=== PATIENT | male | born 1970 | race Caucasian/White ===

== ENCOUNTER 2021-03-17 10:35 | Emergency (ER) | payer SELFPAY ==
--- OUTSIDE RECORDS SUMMARY | 2021-03-17 10:39 | XMS REPORT | Continuity of Care Document ---
:1970 Author Organization [facility] t Address [address] [place] [address] Care Team Providers Name Role Phone Gloria Sena Attending Clinician Unavailable Physician, Primary or Family Admitting Clinician Unavailabl e Payers Payer Name Policy Type Policy Number Effective Date Expiration Date S ource Problems This patient has no known problems. Allergies, Adverse Reactions, Alerts Allergy Allergy Status Severity Reaction(s) Onset Inactive Treating Comm ents Source Name Type Date Date Clinician No Known DA Active U 2020-0 [facility] 8-07 Clear s 00:00: [address] No Known DA Active U 2020-0 [facility] 1-04 Clear s 00:00: [address] No Known DA Active U 2019-0 [facility] Allergie 5-03 Clear s 00:00: [address] Medications This patient has no known medications. Procedures This patient has no known procedures. Encounters Start End Encounter Admission Attending Care Care Encounter Source Date/Time Date/Time Type Type Clinicians Facility Department ID 2021-02-28 2021-02-28 Emergency EM Nathen SHAI AERS [id number] - [facility] 00:35:00 04:15:00 Gloria [id number] Cl [facility] 2021-01-15 2021-01-14 Inpatient E [facility] 7500 MH 03:51:00 20:50:00 [facility] [place] Results Test Description Test Time Test Comments Results Result Comments Source CBC W/AUTO DIFF 2021-03-04 11:52:00 Test Item Value Reference Range Interpretation Comme nts WHITE BLOOD CELL (test code = WBC) 12.1 K/uL 3.5-11.0 H RED BLOOD CELL (test code = RBC) 4.81 M/uL 4.00-5.60 N HEMOGLOBIN (test code = HGB) 14.3 GM/DL 12.5-16.9 N HEMATOCRIT (test code = HCT) 40.9 % 40.0-54.0 N MEAN CELL VOLUME (test code = MCV) 85.0 fL 81.0-99.0 N MEAN CELL HGB (test code = MCH) 29.7 pg 27.0-31.0 N MEAN CELL HGB CONCETRATION (test code = MCHC) 35.0 GM/DL 33.0-37. 0 N RED CELL DISTRIBUTION WIDTH CV (test code = RDW) 13.4 % 11.5- 14.5 N PLATELET COUNT (test code = PLT) 237 K/mm3 150-400 N MEAN PLATELET VOLUME (test code = MPV) 10.1 FL 8.8-13.1 N LYMPHOCYTE % (test code = LY%) 25.4 % 15.0-40.0 N LYMPHOCYTE # (test code = LY#) 3.1 K/uL 1.0-3.8 N TROPONIN-I [id number] 03:46:00 Test Item Value Reference Range Interpretation Comments TROPONIN-I RAPID 0.00 ng/mL 0.00-0.08 N Performed b y certified (test code = raschel knitting machine operator at [facility]) [facility] Ctr Negative: <= 0.0 8 Positive: >= 0.09An elevated troponin value alone is not sufficient todi agnose a myocardial infa rction. Rather, the pat ient sclinical prese ntation (history, physi khadra exam) and ECGshould b e used in conjunction wit h troponin in thediagnosti c evaluation of s uspected myocardial infa rction. Aserial samplin g protocol is recommended to facilitate the identification of temporal changes in trop onin levels characteristic of CT. Coronavirus 2019 nCoV [id number] 01:07:00 Test Item Value Reference Range Interpretation Comments Coronavirus 2019 Negative Negative Performed b y certified nCoV Bedside (non destructive testing scientist at [facility] code = CtrNegative res ults should [id number]) be treated as presumptive and, ifinconsis tent with clinical signs and symptoms or necessaryfor patient management, nay uld be tested with an alternativemole cular assay. Negative result s do not preclude [id number]-[id number]-[id number] tion and should not be u sed as the sole basis forp atient management deci sions. Negative result s should beconsidered in the context of a patient's recent exposures,histo ry, presence of clinical sig ns and symptoms consis tentwith COVID-19. TROPONIN-I [id number] 00:58:00 Test Item Value Reference Range Interpretation Comments TROPONIN-I RAPID 0.00 ng/mL 0.00-0.08 N Performed b y certified (test code = raschel knitting machine operator at [facility]) Med Ctr Negative: <= 0.0 8 Positive: >= 0.09An elevated troponin value alone is not sufficient todi agnose a myocardial infa rction. Rather, the pat ient sclinical prese ntation (history, physi khadra exam) and ECGshould b e used in conjunction wit h troponin in thediagnosti c evaluation of s uspected myocardial infa rction. Aserial samplin g protocol is recommended to facilitate the identification of temporal changes in trop onin levels characteristic of CT. BASIC METABOLIC [id number] 00:51:00 Test Item Value Reference Range Interpretation Comments SODIUM (test code = NA/ABG) 143 MEQ/L 134-147 N POTASSIUM (test code = K/ABG) 3.7 MEQ/L 3.4-5.0 N CHLORIDE (test code = CL/ABG) 108 MEQ/L 100-108 N CREATININE ABG (test code = 1.0 mg/dL 0.8-1.3 N CREAABG) POC IONIZED CALCIUM (test code = 1.09 MMOL/L 1.12-1.32 L POCCA) POC GLUCOSE (test code = POCGLU) 130 MG/DL - XR CHEST 2 [id number] 00:00:00 [facility] 1970 Sex: M FAX: Cassandra Sena [place]: ID St: PRE Name: RITO DENNY FSED : 1970 Age/S: 50/M [address] [facility] Unit #: [id number] Loc: [place] [address] Phys: Gloria Sena MD Acct: [id number] Dis Date: Status:PRE ER PHONE #: Exam Date: 02/28/2021 0100 FAX #: Reason: shortness of breath EXAMS: CPT CODE: [id number] XR CHEST 2 V [id number] PROCEDURE INFORMATION: Exam: XR Chest Examdate and time: 02/28/2021 12:55 AM Age: 50 years old Clinical indication: Shortness of br eath; Patient HX: HX of copd TECHNIQUE: Imaging protocol: XR of the chest. Views: 2 views. PA and Lateral COMPARISON: 1. CR XR CHEST 1V 07/28/2020 8:08 PM 2. CTA CHEST FOR PE 11/26/2019 1:22:18 AM FINDINGS: Lungs: Increased airspace density in the right lower lobe. Remainder of lungs appear radiographically clear. Pleural spaces: Unremarkable. No pleural effusion. No pneumothorax. Heart/Mediastinum: Contours within normal limits. Bones/joints: No acute osseous process. IMPRESSION: Increased airspace density in the right lower lobe. Uncertain if this is related to a confluence of pulmonary arteries with artifactual density or right lower lobe pneumoniais present. Please evaluate clinically. at 0134 Reported and signed by: Jin Mireles M.D. CC: Gloria Sena MD Technologist: Venecia Gillespie, RT(R)(CT) Trnscrd Date/Time/By: 02/28/2021 (0134) : By: [email or web address] PAGE 1 Signed ReportCoronavirus 2019 nCoV Bedside 2020-07-28 20:52:00 Test Item Value Reference Range Interpretation Comments Coronavirus 2019 Negative Negative Negative re sults should be nCoV Bedside (test treated a s presumptive and, code = ifinconsistent with [id number]) clinical signs and symptoms or necessaryfor patient management, nay uld be tested with an alternativemole cular assay. Negative result s do not preclude CQGD-KzR-1jarka tion and should not be u sed as the sole basis forp atient management deci sions. Negative result s should beconsidered in the context of a patient's recent exposures,histo ry, presence of clinical sig ns and symptoms consis tentwith COVID-19. - XR CHEST 1 [id number] 20:49:00 [facility] : 1970 Sex: M FAX: Prem Miguel MD [phone] [place]: ARIELA St: REG Name: RITO DENNY [facility] : 1970 Age/S: 50/M [address] [place] [address] Unit #: [id number] Loc: [place] [address] Phys: Prem Miguel MD Acct: [id number] Dis Date: Status:REG ER PHONE #: [phone] Exam Date: 07/28/20202009 FAX #: [phone] Reason: SOB EXAMS: CPT CODE: [id number] XR CHEST 1 V 71700 Portable single view AP chest INDICATION: Shortness of breath for one day. Comparison: 09/25/2019 chest x-ray FINDINGS: The cardiomediastinal silhouette is normal in size. Calcified right paratracheal and AP window lymph nodes are seen. Left upper lung calcified granuloma present. Lungs are otherwise clear. No pleural effusion or pneumothorax identified. No acute bony finding. IMPRESSION: No evidence for acute cardiopulmonary disease. SL: SG-H at 2048 Reported and signed by: Tej Chaney M.D. CC: Prem Miguel MD Technologist: Jina Benitez RT(R); RT Kermit(R) Trnnerd Date/Time/By: 07/28/2020 (2048) : By: [email or web address] Orig Print D/T: S: 07/28/2020 (2051) PAGE 1 Signed ReportBASIC METABOLIC [id number] 04:45:00 Test Item Value Reference Range Interpretation Comments SODIUM (test code = NA) 140 mEq/L 134-147 N POTASSIUM (test code = 4.6 mEq/L 3.4-5.0 N K) CHLORIDE (test code = 108 mEq/L 100-108 N CL) CARBON DIOXIDE (test 26 mEq/L 21-33 N code = CO2) ANION GAP (test code = 11 0-20 N GAP) GLUCOSE (test code = 127 mg/dL 70-110 H GLU) BLOOD UREA NITROGEN 17 mg/dL 7-18 (test code = BUN) GLOMERULAR FILTRATION 101.9 90-95 H Units of measure = RATE (test code = GFR) ml/mi n/1.73 m2 CREATININE (test code = 0.8 mg/dL 0.6-1.3 N CREAT) CALCIUM (test code = 8.1 mg/dL 8.0-10.5 N CA) HEPATIC FUNCTION [id number] 04:45:00 Test Item Value Reference Range Interpretation Comments TOTAL PROTEIN (test code = PROT) 6.0 g/dL 6.4-8.2 L ALBUMIN (test code = ALB) 2.90 g/dL 3.4-5.0 L BILIRUBIN TOTAL (test code = 0.2 MG/DL <1.5 N BILT) BILIRUBIN DIRECT (test code = < 0.10 MG/DL 0.0-0.30 N BILD) BILIRUBIN INDIRECT (test code = 0.10 MG/DL BILIND) SGOT/AST (test code = AST) 15 IUnit/L 15-37 N SGPT/ALT (test code = ALT) 46 IUnit/L 15-65 N ALKALINE PHOSPHATASE TOTAL (test 72 IUnit/L 20-125 N code = ALKP) CBC W/AUTO [id number] 04:27:00 Test Item Value Reference Range Interpretation Comments WHITE BLOOD CELL (test code = 12.48 x10 3/uL 4.5-11.0 H WBC) RED BLOOD CELL (test code = 4.69 x10 6/uL 4.00-5.60 N RBC) HEMOGLOBIN (test code = HGB) 13.4 g/dL 12.5-16.9 N HEMATOCRIT (test code = HCT) 41.7 % 37.5-50.7 N MEAN CELL VOLUME (test code = 88.9 fL 81.0-99.0 N MCV) MEAN CELL HGB (test code = 28.6 pg 27.0-33.0 N MCH) MEAN CELL HGB CONCETRATION 32.1 g/dL 33.0-37.0 L (test code = MCHC) RED CELL DISTRIBUTION WIDTH CV 13.9 % 11.5-14.5 N (test code = RDW) RED CELL DISTRIBUTION WIDTH SD 45.0 fL 37.0-54.0 N (test code = RDW-SD) PLATELET COUNT (test code = 229 x10 3/uL 150-400 N PLT) MEAN PLATELET VOLUME (test 10.3 fL 7.0-9.0 H code = MPV) NEUTROPHIL % (test code = NT%) 87.2 % 56.0-77.0 H IMMATURE GRANULOCYTE % (test 0.6 % 0.0-2.0 N code = IG%) LYMPHOCYTE % (test code = LY%) 8.3 % 14.0-32.0 L MONOCYTE % (test code = MO%) 3.8 % 4.8-9.0 L EOSINOPHIL % (test code = EO%) 0.0 % 0.3-3.7 L BASOPHIL % (test code = BA%) 0.1 % 0.0-2.0 N NUCLEATED RBC % (test code = 0.0 % 0-0 N NRBC%) NEUTROPHIL # (test code = NT#) 10.87 x10 3/uL 2.0-7.6 H IMMATURE GRANULOCYTE # (test 0.08 x10 3/uL 0.00-0.03 H code = IG#) LYMPHOCYTE # (test code = LY#) 1.04 x10 3/uL 1.0-3.8 N MONOCYTE # (test code = MO#) 0.48 x10 3/uL 0.1-0.8 N EOSINOPHIL # (test code = EO#) 0.00 x10 3/uL 0.0-0.2 N BASOPHIL # (test code = BA#) 0.01 x10 3/uL 0.0-0.2 N NUCLEATED RBC # (test code = 0.00 x10 3/uL 0.0-0.1 N NRBC#) MANUAL DIFF REQUIRED (test NO code = MDIFF) BASIC METABOLIC [id number] 08:40:00 Test Item Value Reference Range Interpretation Comments SODIUM (test code = NA) 140 mEq/L 134-147 N POTASSIUM (test code = 4.1 mEq/L 3.4-5.0 N K) CHLORIDE (test code = 107 mEq/L 100-108 N CL) CARBON DIOXIDE (test 28 mEq/L 21-33 N code = CO2) ANION GAP (test code = 9 0-20 N GAP) GLUCOSE (test code = 103 mg/dL 70-110 GLU) BLOOD UREA NITROGEN 23 mg/dL 7-18 H (test code = BUN) GLOMERULAR FILTRATION 89.0 90-95 L Units of measure = RATE (test code = GFR) ml/mi n/1.73 m2 CREATININE (test code = 0.9 mg/dL 0.6-1.3 N CREAT) CALCIUM (test code = 8.5 mg/dL 8.0-10.5 N CA) HEPATIC FUNCTION [id number] 08:40:00 Test Item Value Reference Range Interpretation Comments TOTAL PROTEIN (test code = PROT) 6.0 g/dL 6.4-8.2 L ALBUMIN (test code = ALB) 2.80 g/dL 3.4-5.0 L BILIRUBIN TOTAL (test code = 0.2 MG/DL <1.5 N BILT) BILIRUBIN DIRECT (test code = < 0.10 MG/DL 0.0-0.30 N BILD) BILIRUBIN INDIRECT (test code = 0.10 MG/DL BILIND) SGOT/AST (test code = AST) 28 IUnit/L 15-37 SGPT/ALT (test code = ALT) 54 IUnit/L 15-65 N ALKALINE PHOSPHATASE TOTAL (test 77 IUnit/L 20-125 N code = ALKP) CBC W/AUTO [id number] 07:59:00 Test Item Value Reference Range Interpretation Comments WHITE BLOOD CELL (test code = 14.80 x10 3/uL 4.5-11.0 H WBC) RED BLOOD CELL (test code = 4.71 x10 6/uL 4.00-5.60 N RBC) HEMOGLOBIN (test code = HGB) 13.6 g/dL 12.5-16.9 N HEMATOCRIT (test code = HCT) 42.0 % 37.5-50.7 N MEAN CELL VOLUME (test code = 89.2 fL 81.0-99.0 N MCV) MEAN CELL HGB (test code = 28.9 pg 27.0-33.0 N MCH) MEAN CELL HGB CONCETRATION 32.4 g/dL 33.0-37.0 L (test code = MCHC) RED CELL DISTRIBUTION WIDTH CV 14.1 % 11.5-14.5 N (test code = RDW) RED CELL DISTRIBUTION WIDTH SD 46.0 fL 37.0-54.0 N (test code = RDW-SD) PLATELET COUNT (test code = 229 x10 3/uL 150-400 N PLT) MEAN PLATELET VOLUME (test 10.8 fL 7.0-9.0 H code = MPV) NEUTROPHIL % (test code = NT%) 74.3 % 56.0-77.0 N IMMATURE GRANULOCYTE % (test 0.5 % 0.0-2.0 N code = IG%) LYMPHOCYTE % (test code = LY%) 17.5 % 14.0-32.0 N MONOCYTE % (test code = MO%) 7.5 % 4.8-9.0 N EOSINOPHIL % (test code = EO%) 0.1 % 0.3-3.7 L BASOPHIL % (test code = BA%) 0.1 % 0.0-2.0 N NUCLEATED RBC % (test code = 0.0 % 0-0 N NRBC%) NEUTROPHIL # (test code = NT#) 10.99 x10 3/uL 2.0-7.6 H IMMATURE GRANULOCYTE # (test 0.08 x10 3/uL 0.00-0.03 H code = IG#) LYMPHOCYTE # (test code = LY#) 2.59 x10 3/uL 1.0-3.8 N MONOCYTE # (test code = MO#) 1.11 x10 3/uL 0.1-0.8 H EOSINOPHIL # (test code = EO#) 0.01 x10 3/uL 0.0-0.2 N BASOPHIL # (test code = BA#) 0.02 x10 3/uL 0.0-0.2 N NUCLEATED RBC # (test code = 0.00 x10 3/uL 0.0-0.1 N NRBC#) MANUAL DIFF REQUIRED (test NO code = MDIFF) BASIC METABOLIC [id number] 04:29:00 Test Item Value Reference Range Interpretation Comments SODIUM (test code = NA) 140 mEq/L 134-147 N POTASSIUM (test code = 4.8 mEq/L 3.4-5.0 N K) CHLORIDE (test code = 110 mEq/L 100-108 H CL) CARBON DIOXIDE (test 28 mEq/L 21-33 N code = CO2) ANION GAP (test code = 7 0-20 N GAP) GLUCOSE (test code = 176 mg/dL 70-110 H GLU) BLOOD UREA NITROGEN 27 mg/dL 7-18 H (test code = BUN) GLOMERULAR FILTRATION 78.8 90-95 L Units of measure = RATE (test code = GFR) ml/mi n/1.73 m2 CREATININE (test code = 1.0 mg/dL 0.6-1.3 N CREAT) CALCIUM (test code = 8.5 mg/dL 8.0-10.5 N CA) COMMENTS: To be done morning of Heart CathBASIC METABOLIC [id number] 04:27:00 Test Item Value Reference Range Interpretation Comments SODIUM (test code = NA) 140 mEq/L 134-147 N POTASSIUM (test code = K) 4.8 mEq/L 3.4-5.0 N CHLORIDE (test code = CL) 110 mEq/L 100-108 H CARBON DIOXIDE (test code = CO2) 28 mEq/L 21-33 N ANION GAP (test code = GAP) 7 0-20 N GLUCOSE (test code = GLU) 176 mg/dL 70-110 H BLOOD UREA NITROGEN (test code = 27 mg/dL 7-18 H BUN) GLOMERULAR FILTRATION RATE (test 90-95 code = GFR) CREATININE (test code = CREAT) mg/dL 0.6-1.3 CALCIUM (test code = CA) 8.5 mg/dL 8.0-10.5 N COMMENTS: To be done morning of Heart CathCBC W/AUTO [id number] 04:17:00 Test Item Value Reference Range Interpretation Comments WHITE BLOOD CELL (test code = 17.28 x10 3/uL 4.5-11.0 H WBC) RED BLOOD CELL (test code = 4.78 x10 6/uL 4.00-5.60 N RBC) HEMOGLOBIN (test code = HGB) 13.7 g/dL 12.5-16.9 N HEMATOCRIT (test code = HCT) 42.6 % 37.5-50.7 N MEAN CELL VOLUME (test code = 89.1 fL 81.0-99.0 MCV) MEAN CELL HGB (test code = 28.7 pg 27.0-33.0 N MCH) MEAN CELL HGB CONCETRATION 32.2 g/dL 33.0-37.0 L (test code = MCHC) RED CELL DISTRIBUTION WIDTH CV 14.1 % 11.5-14.5 N (test code = RDW) RED CELL DISTRIBUTION WIDTH SD 46.0 fL 37.0-54.0 N (test code = RDW-SD) PLATELET COUNT (test code = 213 x10 3/uL 150-400 N PLT) MEAN PLATELET VOLUME (test 10.7 fL 7.0-9.0 H code = MPV) NEUTROPHIL % (test code = NT%) 92.2 % 56.0-77.0 H IMMATURE GRANULOCYTE % (test 0.5 % 0.0-2.0 N code = IG%) LYMPHOCYTE % (test code = LY%) 4.2 % 14.0-32.0 L MONOCYTE % (test code = MO%) 3.0 % 4.8-9.0 L EOSINOPHIL % (test code = EO%) 0.0 % 0.3-3.7 L BASOPHIL % (test code = BA%) 0.1 % 0.0-2.0 N NUCLEATED RBC % (test code = 0.0 % 0-0 N NRBC%) NEUTROPHIL # (test code = NT#) 15.95 x10 3/uL 2.0-7.6 H IMMATURE GRANULOCYTE # (test 0.08 x10 3/uL 0.00-0.03 H code = IG#) LYMPHOCYTE # (test code = LY#) 0.72 x10 3/uL 1.0-3.8 L MONOCYTE # (test code = MO#) 0.51 x10 3/uL 0.1-0.8 N EOSINOPHIL # (test code = EO#) 0.00 x10 3/uL 0.0-0.2 N BASOPHIL # (test code = BA#) 0.02 x10 3/uL 0.0-0.2 N NUCLEATED RBC # (test code = 0.00 x10 3/uL 0.0-0.1 N NRBC#) MANUAL DIFF REQUIRED (test NO code = MDIFF) COMMENTS: To be done morning of Heart CathACUTE HEPATITIS [id number] 08:35:00 Test Item Value Reference Range Interpretation Comments AB HEPATITIS A IGM (test NON REACTIVE INDEX NON REACT. code = HAVMAB) AG HEPATITIS B SURFACE NON REACTIVE INDEX NonReactive (test code = HBSAG) AB HEPATITIS B CORE IGM NON REACTIVE INDEX NON REACT. (test code = HBCMAB) AB HEPATITIS C (test code NON REACTIVE INDEX NON REACT. = HCVAB) LIPID PROFILE (CORONARY RISK)2019-11-26 07:23:00 Test Item Value Reference Range Interpretation Comments TRIGLYCERIDES (test 24 mg/dL 40-150 L code = TRIG) CHOLESTEROL (test 135 mg/dL <200 code = CHOL) CHOLESTEROL/HDL 2.29 RATIO 3.43-4.97 L RISK ASSOCIA JOSE J WITH RATIO (test code = CHOL/HDL RATIOS: RISK CHOLHDL) MALE FEMALE1/2 AVERA GE 3.43 3.27AVERAGE 4.97 4.4 42X AVERAGE 9.55 7.053X AVER AGE 23.39 1 1.04 NOTE THAT THE R EFERENCE VALUE IS RELATE DTO RISK LEVELS RECOM MENDED BY THE NATL.HEA RT, LUNG, AND BLOOD INST. HDL CHOLESTEROL 59.0 mg/dL 32-72 N (test code = HDL) LIPOPROTEIN LDL 65 mg/dL 0-100 N <100 OPT [id number] (test code = LDL) NEAR OPTI MAL/ABOVE [id number] [id number] 89 HIGH>NO=511 VE RY HIGH*Guidelines provided by the [facility] terol EducationProgra m Adult Treatment Panel III COMMENTS: 3 troponins total (including troponin done in ED)[id number] 07:23:00 Test Item Value Reference Range Interpretation Comments TROPONIN-I 4.730 ng/mL 0.000-0.045 HH Negative: <= (test code = 0.045 Positive: TROPI) >= 0.046 Correl ation with serial results, other cardiac markers andclin ical findings is necessary to determine the clinicalsignifi cance of this result. Results using different metho dologies should not be c omparedto one another as kristen titative results may owen y by method. COMMENTS: 3 troponins total (including troponin done in ED)[id number] 04:01:00 Test Item Value Reference Range Interpretation Comments TROPONIN-I 3.810 ng/mL 0.000-0.045 HH Negative: <= (test code = 0.045 Positive: TROPI) >= 0.046 Correl ation with serial results, other cardiac markers andclin ical findings is necessary to determine the clinicalsignifi cance of this result. Results using different metho dologies should not be c omparedto one another as kristen titative results may owen y by method. COMMENTS: 3 troponins total (including troponin done in ED)Novel Coronavirus [id number] 03:17:00 Test Item Value Reference Range Interpretation Comments Novel Coronavirus TEST NOT Negative Previously 2019 Inhouse (test PERFORMED reported result: code = [id number]) Negative E dited by: UMU painter 11/26/19:380964 0315: [id number] previously reported as: Negative DR NEEDS BEDSIDE TESTING SEE [id number] Criteria: Shortness of Breath Coronavirus 2018 nCoV [id number] 03:16:00 Test Item Value Reference Range Interpretation Comments Coronavirus 2019 nCoV Bedside (test Negative Negative code = [id number]) - CTA CHEST FOR [id number] 01:53:00 Name: RITO DENNY [facility] : 1970 Age/S: 49 / M [address] [place] [address] Unit #: [id number] Loc: [place] [id number] Phys: Alan Mccoy MD Acct: [id number] Dis Date: Status: REG ER PHONE #: [phone] Exam Date: 11/26/2019 0124 FAX #: [phone] Reason: shortness of breath EXAMS: CPTCODE: [id number] [place] [address] STUDY: - CTA CHEST FOR PE 11/26/2019 12:55 AM Ordering Physician: Alan Mccoy MD Patient Name: RITO DENNY MR: [id number] : 1970; Age: 49 years y/o Male Clinical Indication: shortness of breath Comparison: None TECHNIQUE: Sequential trans-axial images were obtained with a multi- detector helical CT after iodinated contrast administration. Coronal, sagittal, and 3-D MIP reconstructions were performed. CT imaging performed at this location utilizes radiation dose optimization techniques which i nclude one or more of the following: -Automated exposure control -Adjustment of the mA and/or kV according to patient size -Use of iterative reconstruction technique IV CONTRAST: [id number] Radiation Dose DLP: 214.08 mGy-cmFINDINGS: VASCULAR EVALUATION THORACIC AORTA: Mildly diminished opacification of the otherwise normal-appearing thoracic aorta without aneurysm or dissection. PULMONARY ARTERIES: No evidence of central pulmonary embolus. NONVASCULAR EVALUATION LUNGS: Mild hyperinflation without consolidation, pleural effusion, or pneumothorax. Minimal pleural/parenchymal scarring in both lung apices. Minimal dependent subsegmental atelectasis in the lung bases. Irregular marginated opacity measuring 2.1 x 1.5 x2.2 cm inferiorly in the right upper lobe associated with mild superior retraction of the minor fissure likely representing scarring, but indeterminate for neoplasm given lack of comparison images demonstrating long-term PAGE 1 Signed Report (CONTINUED) Name: RITO DENNY [facility] [place] : [birth year] Age/S: 49 / M [address] [place] [address] Unit #: [id number] Loc: [place] [address] Phys: Alan Mccoy MD Acct: [id number] Dis Date: Status: REG ER PHONE #: [phone] Exam Date: 11/26/2019 0124 FAX #: [phone] R avinash: shortness of breath EXAMS: CPT CODE: [id number] [place] [address] <Continued> stability. Small area of groundglass opacity in the left suprahilar region medially and centrally in the right lower lobe. Mild scarring in the lingula. Calcified granulomas in both lower lobes. Indeterminate 4 mm noncalcified pulmonary nodule along the left major fissure. AIRWAY: Mild retained secretions in the mid and distal trachea.Mild thickening and retained secretions in bronchi more peripheral in the right middle lobe and both lung bases. HEART: Normal size heart. MEDIASTINUM AND RAYMOND: Multiple scattered small lymph nodes in the mediastinum and both raymond. Multiple calcified mediastinal and left hilar lymph nodes. VISUALIZED UPPER ABDOMEN: No significant abnormality. SOFT TISSUES: No suspicious soft tissue lesion or abnormality. OSSEOUS STRUCTURES: No fracture, dislocation, or suspicious focal osseous lesion. IMPRESSION: No evidence of pulmonary embolus. Mild hype rinflation with scattered areas of suspected subsegmental atelectasis and scarring. Indeterminate irregularly marginated opacity in the right upper lobe may represent focally greater scarring, but is indeterminate for neoplasm without comparison images documenting long-term stability. Additionally, an indeterminate pulmonary nodule measuring 4 mm is seen in the left lower lobe. Clinical correlation and short interval follow-up CT isrecommended. Mild retained secretions in the central tracheobronchial tree along with mild bronchial wall thickening and retained secretions in the more peripheral bronchi in the right middle lobe and both lower lobes. Old granulomatous disease. PAGE 2 Signed Report (CONTINUED) Name: [facility] [place] : 1970 Age/S: 49 / M [address] [place] [address] Blvd Unit #: [id number] Loc: [place] [address] Phys: Alan Mccoy MD Acct: [id number] Dis Date: Status: REG ER PHONE #: [phone] ExamDate: 11/26/2019 0124 FAX #: [phone] Reason: shortness of breath EXAMS: CPT CODE: [id number] [place] [id number] <Continued> SL: TPAINTER-H at 0153 Reported and signed by: Walter Frederick M.D. CC: Alan Mccoy MD Technologist:Mary Lou Ledesma, RT(R) CTDI: DLP: Trnscb Date/Time: 11/26/2019 (152) [email or web address] Orig Print D/T: S: 11/26/2019 (0156) PAGE 3 Signed ReportNovel Coronavirus 00:45:00 Test Item Value Reference Range Interpretation Comments Novel Coronavirus Negative Negative Positive r esults are 2019 Inhouse (test indicativ e of the presence code = [id number]) ofSARS-CoV -2 RNA, clinical correlation wit h patient historyand othe r diagnostic info rmation is necessary to determinepatien t infection status. Positiv e results do not rule out bacterial infection or co -infection with other viru ses. Negative result s do not preclude SARS-C oV-2 infection andsh ould not be used as the ramirez e basis for patient managementdecis ions. Negative result s must be combined with otherclinical observations, p atient history, and epidemiological information . Detection of SARS-CoV-2 RNA may be affe cted bysample collec tion methods, storag e conditions, and /or stageof infection. Karla l RNA mutations, vacc inations, antiviraltherap eutics, antibiotics, chemotherapeuti c orimmunosuppres reina drugs have not been e valuated for effectson d etection. Results are for the identification of SARS-CoV-2 RNA usingthe Buckley M2000 Sy stem under the FDA Emergen cy UseAuthorizatio n. The testing is perf ormed by baljeet hemphill in the procedures for the Buckley M2000 molecular diagnostic SARS-CoV-2 juan chapman in vitro. NEEDS BEDSIDE TESTING SEE [id number] Criteria: Shortness of Breath- XR CHEST 1 [id number] 00:31:00 FAX: Alan Graham MD [phone] [place]: St: REG Name: RITO DENNY [facility] : 1970 Age/S: 49/M [address] [place] [address] Unit#: [id number] Loc: [place] [address] Phys: Alan Mccoy MD Acct: [id number] Dis Date: Status: REG ER PHONE #: [phone] Exam Date: 11/25/2019 0015 FAX #: [phone] Reason: Chest Pain EXAMS: CPT CODE: [id number] XR CHEST 1 V 32606 Study: - XR CHEST 1 V 11/25/2019 11:04 PM PatientName: RITO DENNY MR: [id number] : 1970; Age: 49 years y/o Male Ordering Physician: Alan Mccoy MD Clinical Indication: Chest Pain Comparison: None FINDINGS LUNGS: The lungs are clear of consolidation, pleural effusion,and pneumothorax. Tiny calcified granuloma in the left upper lobe. HEART AND MEDIASTINUM: Normal size heart. LINES: None. OSSEOUS STRUCTURES: No fracture, dislocation, or suspicious focal osseous lesion. OTHER: None. IMPRESSION: No acute abnormality as above discussed. SL: TPAINTER-H at 0031 Reported and signed by: Walter Frederick M.D. CC: Alan Mccoy MD Technologist: Yazmin Mata RT([employer]) Trnscrd Date/Time/By: 11/26/2019 (003) : By: [email or web address] Orig Print D/T: S: 11/26/2019 (0034) PAGE 1 Signed ReportLIPOPROTEIN [id number] 00:13:00 Test Item Value Reference Range Interpretation Comments LIPOPROTEIN LDL 69 mg/dL 0-100 N <100 OPT [id number] (test code = LDL) NEAR OPTIM AL/ABOVE [id number] HIGH>IU=656 VE RY HIGH*Guidelines provided by the National Cholesterol EducationProgra Adult Treatment Panel III DRUGS OF ABUSE SCREEN [id number] 00:05:00 Test Item Value Reference Range Interpretation Comments URN COCAINE (test code NEGATIVE NEGATIVE = COCAURN) URN CANNABINOIDS (test NEGATIVE NEGATIVE code = CANNABURN) URN AMPHETAMINE (test NEGATIVE NEGATIVE code = AMPHETURN) URN BARBITURATE (test NEGATIVE NEGATIVE code = BARBITURN) URN BENZODIAZEPINE NEGATIVE NEGATIVE Cut-off v alue:200 (test code = BENZOURN) ng/mL URN OPIATES (test code NEGATIVE NEGATIVE Cut-o ff value:2000 = OPIATURN) ng/mL URN PHENCYCLIDINE (PCP) NEGATIVE NEGATIVE Cuto ffs:Barbiturates (test code = PHENCURN) 200 ng/mLBenzodiaze pines 200 ng/ mLTHC Cannabinoids 50 ng/mLOpiates(Mo rphine) 2000 ng/mLAmphetamin e 1000 ng/mLCocaine 300 ng/ mLPCP phencyclidine 25 ng/mL Unconf irmed screening resul ts shouldnot be us ed for non-medical pur poses. [id number] 00:00:00 Test Item Value Reference Range Interpretation Comments TROPONIN-I 0.092 ng/mL 0.000-0.045 HH Negative: <= (test code = 0.045 Positive: TROPI) >= 0.046 Correl ation with serial results, other cardiac markers andclin ical findings is necessary to determine the clinicalsignifi cance of this result. Results using different metho dologies should not be c omparedto one another as kristen titative results may owen y by method. B-TYPE NATRIURETIC [id number] 23:42:00 Test Item Value Reference Range Interpretation Comments B-TYPE NATRIURETIC PEPTIDE (test 14.1 PG/ML 0-100 N code = BNP) BASIC METABOLIC [id number] 23:39:00 Test Item Value Reference Range Interpretation Comments SODIUM (test code = NA) 143 mEq/L 134-147 N POTASSIUM (test code = 4.1 mEq/L 3.4-5.0 N K) CHLORIDE (test code = 109 mEq/L 100-108 H CL) CARBON DIOXIDE (test 29 mEq/L 21-33 N code = CO2) ANION GAP (test code = 9 0-20 N GAP) GLUCOSE (test code = 115 mg/dL 70-110 H GLU) BLOOD UREA NITROGEN 16 mg/dL 7-18 N (test code = BUN) GLOMERULAR FILTRATION 70.6 90-95 L Units of measure = RATE (test code = GFR) ml/mi n/1.73 m2 CREATININE (test code = 1.1 mg/dL 0.6-1.3 N CREAT) CALCIUM (test code = 8.3 mg/dL 8.0-10.5 N CA) HEPATIC FUNCTION [id number] 23:39:00 Test Item Value Reference Range Interpretation Comments TOTAL PROTEIN (test code = PROT) 7.3 g/dL 6.4-8.2 N ALBUMIN (test code = ALB) 3.60 g/dL 3.4-5.0 N BILIRUBIN TOTAL (test code = 0.2 MG/DL <1.5 N BILT) BILIRUBIN DIRECT (test code = < 0.10 MG/DL 0.0-0.30 N BILD) BILIRUBIN INDIRECT (test code = 0.10 MG/DL BILIND) SGOT/AST (test code = AST) 106 IUnit/L 15-37 H SGPT/ALT (test code = ALT) 76 IUnit/L 15-65 H ALKALINE PHOSPHATASE TOTAL (test 100 IUnit/L 20-125 N code = ALKP) [id number] 23:39:00 Test Item Value Reference Range Interpretation Comments LIPASE (test code = LIP) 78 IUnit/L 73-393 N [id number] 23:39:00 Test Item Value Reference Range Interpretation Comments MAGNESIUM (test code = MAG) 2.30 mg/dL 1.8-2.4 N TSH REFLEX TO [id number] 23:39:00 Test Item Value Reference Range Interpretation Comments TSH REFLEX TO FT4 (test code = 1.75 IU/mL 0.42-5.47 N TSHREFLEX) ARTERIAL BLOOD [id number] 23:31:00 Test Item Value Reference Range Interpretation Comments ARTERIAL BLOOD GAS PH (test code 7.307 7.35-7.45 L = PHA) ARTERIAL BLOOD GAS PCO2 (test 51.5 mmHg 35-45 H code = PCO2A) ARTERIAL BLOOD GAS PO2 (test code 90 mmHg 80-100 N = PO2A) BICARBONATE TOTAL HCO3 (test code 25.8 mmol/L 22.0-26.0 N = HCO3) BASE EXCESS (test code = CHITO) -1.0 mmol/L -4-4 N ABG O2 SATURATION (test code = 96 % 90-100 N SATA) ABG DELIVERY (test code = ANTONI) Cannula ABG TEMPERATURE (test code = 98.6 F TEMPA) ABG SITE (test code = SITEA) R Rad TCO2 ARTERIAL (test code = TCO2A) 27 PROTHROMBIN [id number] 23:29:00 Test Item Value Reference Range Interpretation Comments PROTHROMBIN TIME 11.0 SECONDS 9.3-12.9 N PATIENT (test code = PTP) INTERNATIONAL NORMAL 1.0 0.8-1.2 N TARGET RATIO (test code = INR BY IN DICATION INR) Indication INR1. Prophyl axis of venous thrombos is 2.0 - 3. 0 (orthopedic annalee germaine), Prophylaxis of venous thrombos is (other than hig h-risk surgery), Becky tment of Deep Vein Thrombosis/Pulm onary Embolism, Preve ntion of systemic emb olism - Tissue heart va lves, Acute Myocardia l Infarction (to prevent systemic embo lism), Valvular heart disease, Atri al Fibrillation, Bileaflet mecha nical valve in aortic position.2. Mec hanical prosthetic valv es (high risk), 2.5 - 3.5 Presence of Lupus Anticoagu lant or Antiphospholi pid Antibodies, Pre vention of systemic e mbolism - Acute Myocard ial Infarction (t o prevent recurre nt infarct). THROMBOPLASTIN TIME [id number] 23:29:00 Test Item Value Reference Range Interpretation Comments THROMBOPLASTIN TIME 32.3 Seconds 25.0-39.5 N Ther apeutic PARTIAL (test code = Range: 50.4 - 88.3 PTT) Seconds Effective 11/07/2018 [id number] 23:29:00 Test Item Value Reference Range Interpretation Comments D-DIMER (test 632 ng/mlFEU <=500 HH THROMBOSIS AN D/OR PULMONARY code = EMBOLISM AND TH E CLINICAL DDIMER) CUT- OFF VALUE FOR EXCLUSION (500 ng/mL FEU) OF THESE CONDITIONSIS VA LIDATED BY THE MANUFACTURE R OF THE METHOD. A NEGAT JORGE L D-DIMER RESULT WHEN COM BINED WITH A CLINICALASSESSM ENT OF LOW PRETEST PROBABI LITY HAS BEEN SHOWN TO HAVEA HIGH NEGATIVE PREDICTIVE VALU E OF DVT OR PE. D-DIMER PAGE UES >500 ng/mL FEU ARE N OT DIAGNOSTIC FOR DVT, PEor D IC WITHOUT OTHER CONFIRMAT ORY TESTS AND APPROPRIATECLIN ICAL EUALUATIONS. BASIC METABOLIC [id number] 23:25:00 Test Item Value Reference Range Interpretation Comments SODIUM (test code = NA) 143 mEq/L 134-147 N POTASSIUM (test code = K) 4.1 mEq/L 3.4-5.0 N CHLORIDE (test code = CL) 109 mEq/L 100-108 H CARBON DIOXIDE (test code = CO2) 29 mEq/L 21-33 N ANION GAP (test code = GAP) 9 0-20 N GLUCOSE (test code = GLU) 115 mg/dL 70-110 H BLOOD UREA NITROGEN (test code = 16 mg/dL 7-18 N BUN) GLOMERULAR FILTRATION RATE (test 90-95 code = GFR) CREATININE (test code = CREAT) mg/dL 0.6-1.3 CALCIUM (test code = CA) 8.3 mg/dL 8.0-10.5 N HEPATIC FUNCTION [id number] 23:25:00 Test Item Value Reference Range Interpretation Comments TOTAL PROTEIN (test code = PROT) g/dL 6.4-8.2 ALBUMIN (test code = ALB) g/dL 3.4-5.0 BILIRUBIN TOTAL (test code = BILT) MG/DL <1.5 BILIRUBIN DIRECT (test code = BILD) MG/DL 0.0-0.30 SGOT/AST (test code = AST) IUnit/L 15-37 SGPT/ALT (test code = ALT) IUnit/L 15-65 ALKALINE PHOSPHATASE TOTAL (test IUnit/L 20-125 code = ALKP) [id number] 23:25:00 Test Item Value Reference Range Interpretation Comments LIPASE (test code = LIP) IUnit/L 73-393 [id number] 23:25:00 Test Item Value Reference Range Interpretation Comments MAGNESIUM (test code = MAG) mg/dL 1.8-2.4 TSH REFLEX TO [id number] 23:25:00 Test Item Value Reference Range Interpretation Comments TSH REFLEX TO FT4 (test code = IU/mL 0.42-5.47 TSHREFLEX) TROPONIN-I [id number] 23:24:00 Test Item Value Reference Range Interpretation Comments TROPONIN-I RAPID 0.09 ng/mL 0.00-0.08 H Performed b y certified (test code = raschel knitting machine operator at [facility]) [facility] Negative: <= 0.0 8 Positive: >= 0.09An elevated troponin value alone is not sufficient todi agnose a myocardial infa rction. Rather, the pat ient sclinical prese ntation (history, physi khadra exam) and ECGshould b e used in conjunction wit h troponin in thediagnosti c evaluation of s uspected myocardial infa rction. Aserial samplin g protocol is recommended to facilitate the identification of temporal changes in trop onin levels characteristic of CT. CBC W/AUTO [id number] 23:14:00 Test Item Value Reference Range Interpretation Comments WHITE BLOOD CELL (test code = 14.36 x10 3/uL 4.5-11.0 H WBC) RED BLOOD CELL (test code = 5.02 x10 6/uL 4.00-5.60 N RBC) HEMOGLOBIN (test code = HGB) 14.6 g/dL 12.5-16.9 N HEMATOCRIT (test code = HCT) 46.5 % 37.5-50.7 N MEAN CELL VOLUME (test code = 92.6 fL 81.0-99.0 N MCV) MEAN CELL HGB (test code = 29.1 pg 27.0-33.0 N MCH) MEAN CELL HGB CONCETRATION 31.4 g/dL 33.0-37.0 L (test code = MCHC) RED CELL DISTRIBUTION WIDTH CV 13.6 % 11.5-14.5 N (test code = RDW) RED CELL DISTRIBUTION WIDTH SD 46.5 fL 37.0-54.0 N (test code = RDW-SD) PLATELET COUNT (test code = 222 x10 3/uL 150-400 N PLT) MEAN PLATELET VOLUME (test 10.1 fL 7.0-9.0 H code = MPV) NEUTROPHIL % (test code = NT%) 63.8 % 56.0-77.0 N IMMATURE GRANULOCYTE % (test 0.2 % 0.0-2.0 N code = IG%) LYMPHOCYTE % (test code = LY%) 22.1 % 14.0-32.0 N MONOCYTE % (test code = MO%) 7.9 % 4.8-9.0 N EOSINOPHIL % (test code = EO%) 5.4 % 0.3-3.7 H BASOPHIL % (test code = BA%) 0.6 % 0.0-2.0 N NUCLEATED RBC % (test code = 0.0 % 0-0 N NRBC%) NEUTROPHIL # (test code = NT#) 9.15 x10 3/uL 2.0-7.6 H IMMATURE GRANULOCYTE # (test 0.03 x10 3/uL 0.00-0.03 N code = IG#) LYMPHOCYTE # (test code = LY#) 3.18 x10 3/uL 1.0-3.8 N MONOCYTE # (test code = MO#) 1.14 x10 3/uL 0.1-0.8 H EOSINOPHIL # (test code = EO#) 0.77 x10 3/uL 0.0-0.2 H BASOPHIL # (test code = BA#) 0.09 x10 3/uL 0.0-0.2 N NUCLEATED RBC # (test code = 0.00 x10 3/uL 0.0-0.1 N NRBC#) MANUAL DIFF REQUIRED (test NO code = MDIFF)
--- NOTE | 2021-03-17 11:29 | RAD REPORT ---
EXAM DESCRIPTION: Ashish Van And Lat (2 Views)03/17/2021 11:16 am CLINICAL HISTORY: Cough COMPARISON: None FINDINGS: Small calcified lung granulomas. Calcified hilar and mediastinal lymph nodes. The lungs a ppear clear of acute infiltrate. The heart is normal size IMPRESSION: Calcified lung granulomas. Calcified mediastinal and hilar lymph nodes likely related to prior granulomatous disease No acute abnormality displayed
[2021-03-17 11:37] LABS: Absolute Lymphocytes (CBC) 1.1 K/uL (0.7-4.9); Basophils % 1.3 % (0-1.3); Hematocrit 42.1 % (39.6-49.0); Lymphocytes % 17.3 % (15.3-44.8); RBC Red Blood Cell Count 4.97 M/uL (4.33-5.43)
[2021-03-17 12:00] LABS: BUN Blood Urea Nitrogen 12 mg/dL (7-18); Bicarbonate 27 mmol/L (21-32); Glucose Level 101 mg/dL (74-106); Potassium 4.1 mmol/L (3.5-5.1); Sodium Level 142 mmol/L (136-145)
[2021-03-17] MEDS ORDERED: IPRATROPIUM BROM 0.5MG/2.5ML ONE (13:09)
[2021-03-17] MEDS ORDERED: MAGNESIUM SULFATE 1 gm IVPB 1 GM/100 ML BAG IV ONE (13:09)
[2021-03-17] MEDS ORDERED: ALBUTEROL 2.5 MG/3 ML NEB SOL ONE (13:09)
--- NOTE | 2021-03-17 13:48 | ER ---
Nurse's Notes [facility] Name: Delon Ferrell Age: 50 yrs Sex: Male : 1970 Arrival Date: 03/17/2021 Time: 10:40 Bed 10 [facility] MD: Diagnosis: COPD/ Chronic obstructive pulmonary disease with (acute) exacerbation Presentation: 03/17 10:49 Chief complaint: EMS states: Shortness of breath that began Tuesday that became much ss worse this morning. IV initiated, Solu Medrol 125mg administered en route. Pt self administered albuterol x 6 prior to EMS arrival. Coronavirus screen: Client denies travel out of the [place] in the last 14 days. Ebola Screen: Patient denies exposure to infectious person. Patient denies travel to an Ebola-affected area in the 21 days before illness onset. Initial Sepsis Screen: Does the patient meet any 2 criteria? No. Patient's initial sepsis screen is negative. Does the patient have a suspected source of infection? No. Patient's initial sepsis screen is negative. Risk Assessment: Do you want to hurt yourself or someone else? Patient reports no desire to harm self or others. Onset of symptoms was March 15, 2021. 10:49 Method Of Arrival: Ambulatory ss 10:49 Acuity: ANALIA 3 ss Triage Assessment: 12:59 Respiratory: Onset: The symptoms/episode began/occurred Tuesday03/15/21, the patient vg1 has moderate shortness of breath. Historical: - Allergies: 10:51 No Known Allergies; ss - PMHx: 10:51 COPD; ss - PSHx: 10:51 None; ss - Immunization history:: Adult Immunizations up to date, Client reports having NOT received the Covid vaccine. - Social history:: Smoking status: Patient/guardian denies using tobacco, Stopped _ months ago 3. Screenin:57 Abuse screen: Denies threats or abuse. Nutritional screening: No deficits noted. vg1 Tuberculosis screening: No symptoms or risk factors identified. Fall Risk No fall in past 12 months (0 pts). No secondary diagnosis (0 pts). IV access (20 points). Ambulatory Aid- None/Bed Rest/Nurse Assist (0 pts). Gait- Normal/Bed Rest/Wheelchair (0 pts) Mental Status- Oriented to own ability (0 pts). Total Garcia Fall Scale indicates No Risk (0-24 pts). Assessment: 12:56 General: Appears in no apparent distress. comfortable, Behavior is calm, cooperative. vg1 Pain: Denies pain. Neuro: Level of Consciousness is awake, alert, obeys commands, Oriented to person, place, time, situation. Cardiovascular: Patient's skin is warm and dry. Respiratory: Reports cough that is productive, Airway is patent Respiratory effort is even, unlabored, Respiratory pattern is tachypnea Breath sounds with wheezes bilaterally. GI: Patient currently denies diarrhea, nausea, vomiting. : No signs and/or symptoms were reported regarding the genitourinary system. EENT: No signs and/or symptoms were reported regarding the EENT system. Derm: Skin is intact, is healthy with good turgor. Musculoskeletal: Circulation, motion, and sensation intact. 13:24 Reassessment: Patient appears in no apparent distress at this time. Patient and/or vg1 family updated on plan of care and expected duration. Pain level reassessed. Patient is alert, oriented x 3, equal unlabored respirations, skin warm/dry/pink. Patient states feeling better. 14:06 Reassessment: Patient appears in no apparent distress at this time. Patient and/or vg1 family updated on plan of care and expected duration. Pain level reassessed. Patient is alert, oriented x 3, equal unlabored respirations, skin warm/dry/pink. Patient denies pain at this time. Patient states feeling better. Vital Signs: 10:49 BP 125 / 80; Pulse 63; Resp 22; Temp 98.0(TE); Pulse Ox 94% ; Weight 80.74 kg; Height 6 ss ft. 1 in. (185.42 cm); 12:59 BP 120 / 87; Pulse 56; Resp 22; Pulse Ox 100% on 10% Nebulizer Mask; vg1 14:06 BP 118 / 67; Pulse 70; Resp 20; Pulse Ox 97% on R/A; vg1 10:49 Body Mass Index 23.48 (80.74 kg, 185.42 cm) ss 10:49 94-96% on RA ss ED Course: 10:40 Patient arrived in ED. kb 10:41 Inga Myers [facility]-C [facility] kb 10:41 Abraham Marshall MD is Attending Physician. kb 10:51 Triage completed. ss 10:51 Arm band placed on right wrist. ss 11:16 Chest Pa And Lat (2 Views) XRAY In Process Unspecified. EDMS 12:41 Natalie Peralta, RN is Primary Nurse. vg1 12:42 Maintain EMS IV. Dressing intact. Good blood return noted. Site clean \T\ dry. Gauge \T\ vg 1 site: 20 Left AC. Flushed left antecubital with 5 ml normal saline. 12:59 Patient has correct armband on for positive identification. Bed in low position. Call vg1 light in reach. Side rails up X 1. 14:07 No provider procedures requiring assistance completed. IV discontinued, intact, vg1 bleeding controlled, No redness/swelling at site. Pressure dressing applied. Administered Medications: 12:51 Drug: Magnesium Sulfate 1 grams Route: IVPB; Infused Over: 30 mins; Site: left vg1 antecubital; 13:24 Follow up: IV Status: Completed infusion; IV Intake: 100ml vg1 12:55 Drug: DuoNeb (albuterol 2.5 mg, ipratropium 0.5 mg) (3:1) (2.5 mg - 0.5 mg) 3 ml Route: vg1 Nebulizer; 13:43 Follow up: Response: No adverse reaction; Marked relief of symptoms vg1 Intake: 13:24 IV: 100ml; Total: 100ml. vg1 Outcome: 13:47 Discharge ordered by . kb 14:07 Discharged to home ambulatory. vg1 14:07 Condition: stable 14:07 Discharge instructions given to patient, Instructed on discharge instructions, follow up and referral plans. medication usage, Demonstrated understanding of instructions, follow-up care, medications, Prescriptions given X 1. 14:10 Patient left the ED. vg1 Signatures: Dispatcher [employer] EDMS Inga Myers, RAILWAY TRACK WORKER-C Yina Mehta, RN RN ss Natalie Peralta, RN RN vg1
--- NOTE | 2021-03-17 13:48 | EDPHYS ---
Physician Documentation [facility] Name: Delon Ferrell Age: 50 yrs Sex: Male : 1970 Arrival Date: 03/17/2021 Time: 10:40 Bed 10 Private MD: ED Physician Abraham Marshall HPI: 03/17 10:50 This 50 yrs old Male presents to ER via Ambulatory with complaints of kb Breathing Difficulty. 10:50 The patient has shortness of breath at rest. Onset: The symptoms/episode began/occurred kb 3 day(s) ago. Duration: The symptoms are continuous. The patient's shortness of breath is aggravated by nothing, is alleviated by nothing. Associated signs and symptoms: Pertinent positives: non-productive cough. Severity of symptoms: At their worst the symptoms were moderate in the emergency department the symptoms are unchanged. The patient has experienced similar episodes in the past, a few times. The patient has not recently seen a physician. Pt diagnosed with COPD in November. Started having an exacerbation on Tuesday, symptoms got worse at 0300 this morning. Home neb completed without relief. Historical: - Allergies: 10:51 No Known Allergies; ss - PMHx: 10:51 COPD; ss - PSHx: 10:51 None; ss - Immunization history:: Adult Immunizations up to date, Client reports having NOT received the Covid vaccine. - Social history:: Smoking status: Patient/guardian denies using tobacco, Stopped _ months ago 3. ROS: 10:50 Constitutional: Negative for fever, chills, and weight loss. kb 10:50 Respiratory: Positive for cough, shortness of breath. 10:50 All other systems are negative. Exam: 10:50 Constitutional: This is a well developed, well nourished patient who is awake, alert, kb and in no acute distress. Head/Face: Normocephalic, atraumatic. ENT: Moist Mucous membranes Cardiovascular: Regular rate and rhythm with a normal S1 and S2. No gallops, murmurs, or rubs. No pulse deficits. Skin: Warm, dry with normal turgor. Normal color. MS/ Extremity: Pulses equal, no cyanosis. Neurovascular intact. Full, normal range of motion. Neuro: Awake and alert, GCS 15, oriented to person, place, time, and situation. Moves all extremities. Normal gait. Psych: Awake, alert, with orientation to person, place and time. Behavior, mood, and affect are within normal limits. 10:50 Respiratory: mild respiratory distress is noted, Respirations: labored breathing, that is mild, Breath sounds: wheezing: inspiratory expiratory that is moderate, is heard diffusely. Vital Signs: 10:49 BP 125 / 80; Pulse 63; Resp 22; Temp 98.0(TE); Pulse Ox 94% ; Weight 80.74 kg; Height 6 ss ft. 1 in. (185.42 cm); 12:59 BP 120 / 87; Pulse 56; Resp 22; Pulse Ox 100% on 10% Nebulizer Mask; vg1 14:06 BP 118 / 67; Pulse 70; Resp 20; Pulse Ox 97% on R/A; vg1 10:49 Body Mass Index 23.48 (80.74 kg, 185.42 cm) ss 10:49 94-96% on RA ss MDM: 10:41 Patient medically screened. kb 13:45 Data reviewed: vital signs, nurses notes. Data interpreted: Pulse oximetry: on room air kb is 100 %. Interpretation: normal. Counseling: I had a detailed discussion with the patient and/or guardian regarding: the historical points, exam findings, and any diagnostic results supporting the discharge/admit diagnosis, lab results, radiology results, the need for outpatient follow up, a family practitioner, to return to the emergency department if symptoms worsen or persist or if there are any questions or concerns that arise at home. Response to treatment: the patient's symptoms have markedly improved after treatment. 03/17 10:44 Order name: CBC with Diff 03/17 10:44 Order name: Basic Metabolic Panel 03/17 10:44 Order name: COVID-19 : Document "Date of Symptom Onset" if Symptomatic. 03/17 10:44 Order name: CBC with Automated Diff; Complete Time: 11:46 EDMS 03/17 10:44 Order name: Basic Metabolic Panel; Complete Time: 12:11 EDMS 03/17 10:44 Order name: IV Start; Complete Time: 12:42 kb 03/17 10:44 Order name: Chest Pa And Lat (2 Views) XRAY; Complete Time: 11:30 kb 03/17 12:29 Order name: SARS-COV-2 RT PCR; Complete Time: 12:39 EDMS Administered Medications: 12:51 Drug: Magnesium Sulfate 1 grams Route: IVPB; Infused Over: 30 mins; Site: left vg1 antecubital; 13:24 Follow up: IV Status: Completed infusion; IV Intake: 100ml vg1 12:55 Drug: DuoNeb (albuterol 2.5 mg, ipratropium 0.5 mg) (3:1) (2.5 mg - 0.5 mg) 3 ml Route: vg1 Nebulizer; 13:43 Follow up: Response: No adverse reaction; Marked relief of symptoms vg1 Disposition: 18:05 Co-signature as Attending Physician, Abraham Marshall MD I agree with the assessment and rn plan of care. Attestation: The patient's history, exam findings, diagnostics, and a summary of any interventions or procedures was reviewed in detail with Inga RUBIO. Disposition Summary: 03/17/21 13:47 Discharge Ordered Location: Home kb Condition: Stable kb Diagnosis - COPD/ Chronic obstructive pulmonary disease with (acute) exacerbation kb Followup: kb - With: Emergency Department - When: As needed - Reason: Worsening of condition Followup: kb - With: Private Physician - When: 2 - 3 days - Reason: Recheck today's complaints, Continuance of care, Re-evaluation by your physician Discharge Instructions: - Discharge Summary Sheet kb - Chronic Obstructive Pulmonary Disease Exacerbation kb Forms: - Medication Reconciliation Form kb - Thank You Letter kb - Antibiotic Education kb - Prescription Opioid Use kb - Work release form vg1 Prescriptions: - Prednisone 20 mg Oral Tablet - take 1 tablet by ORAL route once daily for 5 days; 5 tablet; Refills: 0, kb Product Selection Permitted Signatures: Dispatcher [employer] EDInga Lee FNP-C FNP-Ckb Nieto, Roman, MD MD rn Smirch, Shelby, RN RN ss Garcia, Victoria, RN RN vg1 Corrections: (The following items were deleted from the chart) 11:30 10:44 CORONAVIRUS ordered. EDCA EDCA
[2021-03-17 14:15] VITALS: TEMP 98
[2021-03-17 14:18] VITALS: BP 118/67; O2SAT 97
== END 2021-03-17 14:10 | disposition home or self-care (01) ==
LOC: ER 10:35
DX: J44.1 Chronic obstructive pulmonary disease with (acute) exacerbation (principal)
CPT/HCPCS: 36415; 71046; 80048; 85025; 96365; 99284; J3475; U0003